=== PATIENT | female | born 1980 | race Caucasian/White ===

== ENCOUNTER 2017-02-09 00:11 | Emergency (ER) | payer MEDICAID ==
[~2017-02-09] VITALS: Ht 167.6 cm; Wt 56.7 kg
[~2017-02-09 00:11] MED LIST: BACTRIM DS 8001 TA1 PO; CLARITIN 10MG T10 MG PO; KEFLEX 500MG.500 MG PO; MEDROL 4MG. DOSE4 MG PO; NOMEDS XX; PRILOSEC20 M1 PO; TRIAMCINOLON EX; ZITHROMAX Z PA250 MG PO
[2017-02-09 00:56] LABS: LYMPH # 1.3 K/mm3 (0.7-4.5); LYMPH % 9.6 % (10-50.0)
[2017-02-09 00:58] LABS: HEMOGLOBIN 13.3 g/dL (12.2-16.2)
--- NOTE | 2017-02-09 01:21 | Emergency Room Report ---
History of Present Illness Time Seen by [id number] Presenting Problem in Triage Pt arrived:Walked Presenting Problem:nausea, vomiting and chills and poor po intake, intermittent chest pain and pressure x 5 days. 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 N Clinical Suspician of Infection? Y Mental Status: 1 - Regular (Normal Baseline) Sepsis Risk:Low Sepsis Risk Have you (or family members/close friends) recently traveled outside the [place]? N If Yes, where/when: Have you had exposure to infectious disease within the past month? N TB? Other? Specify: Source patient, RN notes reviewed, family, RN/MD Exam Limitations no limitations Comment This is a 36-year-old female patient presented emergency room with nausea, vomiting and the RIGHT upper quadrant abdominal pain for the past 5 days , gradually getting worse. Patient has any fever, and chills or diarrhea. Patient also denies any recent travel or exposure to sick contacts. ALLERGIES Coded Allergies: erythromycin base (Mild, 06/14/16) penicillin G (Mild, 06/14/16) Home Medications Active Scripts SULFAMETHOXAZOLE W/TRIMETHOPRI (Bactrim Ds Tab) 1 TABLET PO BID #20 TAB Prov: 06/14/16 Reported Medications No Home Medications (NO HOME MEDICATIONS) 1 EACH XX ONCE History Medical History General CAD? No Angina: No VA: No Hypertension? No Hyperlipidemia? No CHF? No DVT? No PE? No COPD? No Asthma? No Anemia? No GERD? No Gastric ulcers? No GI Bleed? No Hernia? No Thyroid Problems? No Hypothyroidism? No CVA? Yes Seizures? No Diabetes? No UTI? No Stones? No BPH? No GB Disease: No Nephritic Syndrome? No Asplenia? No Hepatitis? No Sickle Cell Disease? No Arthritis? No Migraines? No Cataracts? No Glaucoma? No MRSA? No HIV? No TB? No Anxiety? No Depression? No Cancer? No More? 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 Social History Smoking Hx Smoker: Current Every Day Smoker Tobacco: Yes Type Cigarettes Packs/day < 1 Pack Alcohol Alcohol: Yes Review of Systems All Other Systems Reviewed and Negative Gastrointestinal denies diarrhea, nausea, vomiting Physical Exam Vital Signs Vital Signs Date Time Temp Pulse Resp B/P Pulse O2 O2 Flow FiO2 Ox Delivery Rate 02/09 0507 98.0 96 18 108/70 96 02/09 0459 98.0 96 18 108/70 96 02/09 0330 96 18 103/51 96 02/09 0228 74 20 106/73 96 02/09 0129 68 20 124/76 97 02/09 0014 98.0 89 13 120/82 98 General Appearance normal appearance, WD/WN, mild distress Neck normal inspection, non-tender, supple, full range of motion Respiratory Status Yes: trachea midline, chest symmetrical, non tender chest. No: respiratory distress. Lung Sounds bilateral: normal breath sounds, lungs clear. 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 No Comment Upon evaluation patient appears medically stable, in no acute distress. Advised patient of results obtained as well as need for her to follow up with PCP in order to obtain an outpatient gallbladder ultrasound. Patient advised to eat a bland diet till additional workup obtained. Results/Orders Laboratory Tests 02/09/17 0225: Opiates Screen NEGATIVE, Urine Methadone Screen NEGATIVE, Barbiturates NEGATIVE, Phencyclidine Screen NEGATIVE, Amphetamines Screen NEGATIVE, Benzodiazepines Screen NEGATIVE, Cocaine Screen NEGATIVE, Marijuana (THC) Screen NEGATIVE, Urine Color DK YELLOW, Urine Appearance CLOUDY, Urine pH 7.0, Ur Specific [place] 1.010, Urine Protein NEGATIVE, Urine Ketones NEGATIVE, Urine Blood 1+ H, Urine Nitrate NEGATIVE, Urine Bilirubin 1+ H, Urine Urobilinogen 1.0, Ur Leukocyte Esterase 3+ H, Urine RBC 5-10, Urine WBC TNTC, Urine Glucose NEGATIVE 02/09/17 0030: Sodium 134 L, Potassium 3.2 L, Chloride 96 L, Carbon Dioxide 32, BUN 4 L, Creatinine 1.0, Estimated Creat Clear 69, Estimated GFR (MDRD) 63, Glucose 131 H, Calcium 8.5, Creatine Kinase 33, CK-MB (CK-2) Rel Index 1.5, CK and CKMB Interp < 0.5, Troponin I < 0.02 02/09/17 0030: Amylase 12 L, Lipase 64 L 02/09/17 0030: Total Bilirubin 3.1 H, Direct Bilirubin 1.89 H, Indirect Bilirubin 1.21 H, AST 305 *H, ALT 81 H, Alkaline Phosphatase 328 H, Total Protein 7.8, Albumin 2.6 L, WBC 13.5 H, RBC 3.70 L, Hgb 13.3, Hct 39.7, MCV 107.3 H, RDW 15.3, Plt Count 223, MPV 9.3, Gran % 84.3 H, Gran # 11.4 H, Lymphocytes % 9.6 L, Monocytes % 5.2, Eosinophils % 0.6, Basophils % 0.3, Lymphocytes # 1.3, Monocytes # 0.7, Eosinophils # 0.1, Basophils # 0.0, PUBS MCHC 33.5, MCH 35.9 H , Alcohols 0 Current Medication Orders Sig/Kendra Start time Last Medication Dose Route Stop Time Status Admin Pantoprazole Sodium 0 .STK-MED ONE 02/09 449 DC .ROUTE Pantoprazole Sodium 0 .STK-MED ONE 02/095 DC IV Pantoprazole Sodium 40 MG ONCE ONE 02/09 0430 DC 02/09 PO 02/09 0431 0449 Iopamidol 75 ML ONCE ONE 02/09 0400 DCD 02/09 IV 02/09 0401 0352 Sodium Chloride 10 ML PRN PRN 02/09 0400 DCD 02/09 IV 02/09 0521 0352 Ondansetron HCl 4 MG ONCE ONE 02/09 0130 CAN IV 02/09 0131 Aspirin 324 MG ONCE ONE 02/09 0030 DC 02/09 PO 02/09 0031 0030 Ondansetron HCl 4 MG ONCE ONE 02/09 0030 DC 02/09 IV 02/09 0031 0052 Sodium Chloride 10 ML PRN PRN 02/09 0030 DCD IV 02/10 0027 Sodium Chloride 1,000 ML .Q1H1M 02/09 0030 DC 02/09 IV 02/09 0130 0053 Sodium Chloride 10 ML PRN PRN 02/09 0030 DCD IV 02/10 0030 Aspirin 0 .STK-MED ONE 02/09 0028 DC .ROUTE Ondansetron HCl 0 .STK-MED ONE 02/09 0028 DC .ROUTE Sodium Chloride 1,000 ML .STK-MED ONE 02/09 002 DC IV Orders Procedure Date/time Status DIET-NOTHING BY MOUTH 02/09 B Active URINE 02/[address] ABD & PELVIS W/ CONTRAST 02/[address] ABD/PELVIS REQ 02/09 0235 Active CULTURE, URINE 02/09 0225 Active LIVER PROFILE 02/09 012 Complete DRUG ABUSE SCREEN (10) 02/09 012 Complete ALCOHOL 02/09 0125 Complete URINALYSIS/COMPLETE 02/09 003 Complete LIPASE 02/09 0033 Complete AMYLASE 02/09 0033 Complete ELECTROCARDIOGRAM REQUEST 02/09 0027 Active CHEST(2 VIEWS-NOT PORTABLE) 02/09 0027 Active IV SALINE LOCK 02/09 0027 Active CBC WITH AUTO DIFF 02/09 0027 Complete CARDIAC ENZYMES 02/09 0027 Complete BASIC METABOLIC PROFILE 02/09 0027 Complete 12 LEAD EKG-JAN (INITIAL) 02/09 UNK Active XRAY/CT/US XRAY/CT/US CT abdomen, pelvis CT interpretation by discussed w/radiologist CT Results see virtual radiologist report Departure Departure Time of Disposition 0416 Disposition DC Home or Self Care(routine) Clinical Impression Primary Impression: Chest pain Qualifiers: Chest pain type: unspecified Qualified Code: R07.9 - Chest pain, unspecified Secondary Impressions: Abdominal pain Qualifiers: Abdominal location: unspecified location Qualified Code: R10.9 - Unspecified abdominal pain Alcoholism /alcohol abuse Esophagitis determined by biopsy Right ovarian cyst Condition STABLE Referrals Nory CASTRO,LIZET Ferreira: 2 Days-Call Office if not better RICHARD TERESA MD Patient Instructions DI for Alcohol Abuse, DI for Esophagitis, DI for Ovarian Cyst Additional Instructions Please take the medications prescribed as instructed, follow-up with Animal Shelter Worker 2-3 days regarding your right ovarian cyst. Please follow-up with one of the local general surgeon, Dr. Teresa or Dr. Cueto regarding your esophagitis, and EGD. Please discontinue use of any alcoholic beverages, immediately. Discharge Counseling Counseled pt/family regarding diagnosis, test results, medications/RX, home care, follow up needs Comment Please take the medications prescribed as instructed, follow-up with Animal Shelter Worker 2-3 days regarding your right ovarian cyst. Please follow-up with one of the local general surgeon, Dr. Teresa or Dr. Cueto regarding your esophagitis, and EGD. Please discontinue use of any alcoholic beverages, immediately. Prescriptions Current Visit Scripts Pantoprazole Sodium (Protonix 40MG TAB) 40 MG PO DAILY #30 TAB Ref 2 Ciprofloxacin HCl (Cipro 500MG TAB) 500 MG PO BID #14 TAB ED Critical Care Critical Care No at 1906
[2017-02-09 01:25] LABS: BUN 4 mg/dL (7-18)
[2017-02-09 01:26] LABS: GFR (ESTIMATED) 63 ML/MIN (59-)
[2017-02-09 01:41] LABS: BILIRUBIN, INDIRECT 1.21 mg/dL (0-0.9)
[2017-02-09 03:03] LABS: URINE BLOOD 1+ (NEG)
[2017-02-09 03:05] LABS: URINE BILIRUBIN - DIPSTICK 1+ (NEG)
[2017-02-09 03:10] LABS: AMPHETAMINES/METAMPHETAMINES NEGATIVE ng/mL (<1000)
[2017-02-09] MEDS ORDERED: ETODOLAC200 MG PO (04:20)
[2017-02-09] MEDS ORDERED: PROTONIX 40MG T40 MG PO (04:30)
[2017-02-09] MEDS ORDERED: CIPRO 500MG TA500 MG PO (04:58)
[2017-02-09 05:07] VITALS: BP 108/70
--- NOTE | 2017-02-09 19:40 | RADIOLOGY REPORT PS360 ---
CHEST(2 VIEWS-NOT PORTABLE) Ordering physician: Dylon Larson MD Age: 36 years Female INDICATION: chest symptomsCHEST PAIN PROCEDURE: CHEST(2 VIEWS-NOT PORTABLE) FINDINGS: No prior Lungs well expanded and clear with nothing definitely acute. No pneumothorax. No pleural effusion. Heart normal size. Normal pulmonary vascularity. Hilar and mediastinal structures appear satisfactory. Chest wall unremarkable. T-spine intact. IMPRESSION ----- No active disease Nothing definite acute at chest
--- NOTE | 2017-02-10 20:14 | RADIOLOGY REPORT PS360 ---
CT ABD PELVIS W/ CONTRAST HISTORY: ABD PAIN Patient Age: 36 years: Female Ordering Physician: Dylon Larson MD TECHNIQUE: Helical CT scans abdomen and pelvis following 75 cc Isovue-[id number]. No oral contrast. COMPARISON :None FINDINGS Lung bases appear clear. No active disease Abdomen:. LIVER:.*Hepatomegaly with prominent diffuse fatty changes/hepatic steatosis throughout liver. Focal lower density area seen at posterior dome liver measuring ~4 cm.? Possible Hemangioma most suspect in this younger female. Although could reflect other process given her abnormal liver function test and abnormal liver appearance discussed below... Agree with [facility] report in that we do see vessels passing through this region with no significant displacement-thus this a could reflect focal fatty change.. On close scrutiny there is also subtle vague lower liver density in the region diffusely surrounding this patient's relatively small caliber hepatic segment of IVC. Noting the abnormal LFTs I question there may be liver inflammation swelling about this region which may be slightly compressing IVC??.. Above and below the liver the IVC is normal in caliber...... Also Question relatively small stretched appearance of the hepatic veins leading to the IVC.. They do fill with contrast but appears small but somewhat stretched & attenuated particularly as they approach the IVC. Also note few small azygos nodes versus possibly some increase azygos venous collaterals at the retrocrural region.... This the above multiple findings reflect reflects a curious constellation of the observations which I believe would benefit from hepatic specialist/GI consult. The degree at patient L and LFTs remain elevated.. Last of all note the portal vein is normal caliber measuring 11 mm diameter. However I question that there may be some early increased portal venous collaterals developing medial to the spleen. . No ascites is evident currently.Only some wispy hazy appearance is seen just inferior to the tip the right lobe of liver on coronal views. Recommend follow-up pre-& postcontrast CT abdomen/pelvis, with postcontrast triphasic hemangioma protocol.. Subsequent to these images ultrasound abdomen with attention liver may be useful as well to further evaluate.-& Please specify evaluation of IVC and hepatic veins if ordered to survey for questionable developing Budd-Chiari type picture. Spleen. Upper normal length. Normal measuring Upper normal size overall. .. Gallbladder. No calcified gallstones. Likely sludge. No GB l thickening. Suggestion of Mild diffuse enhancement the wall of gallbladder. Pancreas. Unremarkable. Left adrenal is upper normal prominence. There are some small slight increased number ofppara-aortic lymph nodes both to the left & right of the upper abdominal aorta, & just inferior the martha. These are modest size with multiple enlarging nodes measuring 14 times x 10 mm. PELVIS.: Enlarged right ovary measuring 4.2 x 3.7 cm. Which Contains a 3.5 cm cystic area. If pelvic pain pelvic ultrasound may be of benefit.. Left ovary/adnexa is unremarkable. . Uterus moderate to generous size. Also note generous over 1 cm endometrium. There may be some scant free fluid the pelvis that this point appears to be merely physiologic URINARY BLADDER. Marked diffuse wall thickening compatible with severe cystitis. Slight hazy appearance in the fat surrounding the urinary bladder for this supporting cystitis Kidneys. No urinary tract calculi nor obstruction. Normal enhancement. Ureters unremarkable GI Tract.: Upper normal wall thickness proximal stomach. Moderate fluid throughout small bowel but no significant bowel dilatation or obstruction. Areas of upper normal wall thickness in large and small bowel. Generous wall thickness at the distal transverse colon most likely reflects lack of distention,, as seen on axial image 77 coronal slice 21 but is slightly unique versus other areas of large bowel..- If blood in stool this may warrant further evaluation. Osseous. Unremarkable IMPRESSION 1.. Constellation of Liver Abnormalities.. Suggest GI./-hepatic specialist consult if LFTs remain or progressively elevated. . A.. Hepatomegaly . Prominent diffuse fatty change/ hepatic steatosis . B.. Over 4 cm focal low-density area or lesion posterior dome the liver. Hemangioma versus other process/lesion.. . C.. Unusually slender narrowed appearance of hepatic portion IVC as well as relatively narrow stretched appearance of hepatic veins.. Also subtle vague additional low-density surrounding the IVC region.-Curious features.. (Speculate possible additional hepatic inflammation/& swelling compressing the IVC if marked abnormal LFTs?.... Vs other process.)... 2.. Severe Cystitis.... Prominent urinary bladder wall thickening. 3.. Right Ovarian Cyst, measuring 3.5 cm; within enlarged 4.2 cm Right Ovary,. 4.. Increased number of moderate size periaortic lymph node. Nonspecific. Increased small retrocrural nodes versus retrocrural IVC collaterals 5. Other minor observations also noted in text. 6.. Consider/Suggest GI-hepatic consult particularly if LFTs further elevated. Suggest follow-up LFTs & possibly hepatitis profile Suggest follow-up CT abdomen with triphasic postcontrast imaging. Ultrasound abdomen w/attention hepatic veins may be beneficial in follow-up as well Please fax to ER as well Dr. Sheikh's office.
== END 2017-02-09 05:10 | disposition home or self-care (01) ==
LOC: ER 00:11
PROVIDERS: Emergency Medicine
DX: R07.9 Chest pain, unspecified (principal); R10.11 Right upper quadrant pain; F10.20 Alcohol dependence, uncomplicated; Y90.0 Blood alcohol level of less than 20 mg/100 ml; K20.9 Esophagitis, unspecified
CPT/HCPCS: J2405; Q9967

== ENCOUNTER 2017-04-07 11:29 | Inpatient (IN) | payer MEDICAID ==
[~2017-04-07] VITALS: Ht 167.6 cm; Wt 58.6 kg
[~2017-04-07 11:29] MED LIST changes: +CIPRO 500MG TA500 MG PO; +ETODOLAC200 MG PO; +PROTONIX 40MG T40 MG PO
--- OUTSIDE RECORDS SUMMARY | 2017-04-07 11:32 | External Medical Summary Rpt | CCD ---
Author Author , DELANEY Organization DELANE[employer] Address Unknown Phone [email or web address] Providers Care Oil Heat Technician Name Role Phone SHAE DARBY MD, Unavailable Unavailable SHAE DARBY MD Purpose Continuity of Care Document - 09-10-2012 through 2016 Problems Code Diagnosis DOS Provider Status 477.8 477.8 09-10-2012 [place] ALLERGIC [facility] RHINITIS [facility] NEC 530.81 530.81 09-10-2012 [place] ESOPHAGEAL [facility] REFLUX [facility] F10.10 ALCOHOL ABUSE, UNCOMPLICAT ED F10.20 ALCOHOL DEPENDENCE, UNCOMPLICAT ED K20.9 ESOPHAGITIS , UNSPECIFIED N39.0 URINARY TRACT INFECTION, SITE NOT SPECIFIED N83.201 UNSPECIFIED OVARIAN CYST, RIGHT SIDE R07.9 CHEST PAIN, UNSPECIFIED R10.9 UNSPECIFIED ABDOMINAL PAIN Allergies, Adverse Reactions, Alerts Type Drug Allergy Adverse Reaction to Substance Substance Reaction Severity Penicillin Unknown Unknown SULFA (sulfonamide) Unknown Unknown Erythromycin Unknown Unknown Medications Na ND Rx Da Fi Fi Am Da Di Ph RX Ph St me C No te ll ll ou ys ag ar # ys at rm s nt no ma ic us Or Da si cy ia de te s n re d GI 12 04 0 No 32 -2 CO 22 6- Lo CK 22 20 ng TA 22 13 er IL 2 Ac 60 ti ML ve UD C Vital Signs 09-10-2012 17:18 Name Value Interpretat Reference Comment ion Range Body 98.1 [degF] Temperature BP 96 mm[Hg] Diastolic BP Systolic 151 mm[Hg] Heart 94 /min Rate/Pulse O2% 97 % Respiratory 20 /min Rate 09-10-2012 17:16 Name Value Interpretat Reference Comment ion Range BP 95 mm[Hg] Diastolic BP Systolic 138 mm[Hg] Heart 99 /min Rate/Pulse O2% 100 % Respiratory 16 /min Rate Results Labs Lab Lab Date Result Refere Interp Status Commen Order Detail nces retati t Range on Drugs identified in Urine by Screen method (02-09-2017 02:25) Ampheta NEGATIV <1000 complet mine 017 E ed [Presen 02:25 ce] in Urine by Screen method 11-Hydr NEGATIV <50 complet oxy 017 E ed delta-9 02:25 tetrahy drocann abinol [Presen ce] in Unspeci fied specime n Urinalysis dipstick W Reflex Microscopic panel in Urine (02-09-2017 02:25) Erythro 5-10 0 complet cytes 017 ed [Presen 02:25 ce] in Urine sedimen t by Light microsc opy Urinalysis dipstick W Reflex Microscopic panel in Urine (02-09-2017 02:25) Appeara CLOUDY CLEAR complet nce of 017 ed Urine 02:25 Bilirub 1+ NEG Abnorma complet in 017 l ed [Presen 02:25 ce] in Urine by Test strip Erythro 1+ NEG Abnorma complet cytes 017 l ed [Presen 02:25 ce] in Urine Color DK YELLOW complet of 017 YELLOW ed Urine 02:25 Ketones NEGATIV NEG complet 017 E ed [Presen 02:25 ce] in Urine by Automat ed test strip Mucus 3+ NEG Abnorma complet [Presen 017 l ed ce] in 02:25 Urine sedimen t by Light microsc opy Nitrite NEGATIV NEG complet 017 E ed [Presen 02:25 ce] in Urine by Test strip Urobili 1.0 NEG complet nogen 017 ed [Presen 02:25 ce] in Urine by Test strip Encounters Encounter Start End Date Code Location Performer Type Date Emergency ARTHUR DARBY MD (ER) 3 16:51 3 17:28 [facility]
--- OUTSIDE RECORDS SUMMARY | 2017-04-07 11:32 | External Medical Summary Rpt | CCD ---
Author Author , DELANEY Organization [employer] Address Unknown Phone [email or web address] Care Team Providers Care Jordan Worker Name Role Phone SHAE DARBY MD, Unavailable Unavailable SHAE DARBY MD Purpose Continuity of Care Document - 09-10-2012 through 2016 Problems Code Diagnosis DOS Provider Status 477.8 477.8 09-10-2012 [place] ALLERGIC [facility] RHINITIS [facility] NEC 530.81 530.81 09-10-2012 [place] ESOPHAGEAL [facility] REFLUX [facility] F10.10 ALCOHOL ABUSE, UNCOMPLICAT ED F10.20 ALCOHOL [...] Code Location Performer Type Date Emergency ARTHUR DARYB MD (ER) 3 16:51 3 17:28 [facility]
--- OUTSIDE RECORDS SUMMARY | 2017-04-07 11:33 | External Medical Summary Rpt ---
Author Author DELANEY Mitchell, JAVIROYCE [employer] Organization [employer] Address Unknown Phone Unavailable Results Choriogonadotropin.beta subunit [Units] in 24 hour Urine Observa Value Referen Units Interpr Notes Date tion ce etation Range Choriogon NEG No No No Sep 25 adotropin informati informati informati 2017 2:25 .beta on in on in on in AM subunit source source source [Units] data data data in 24 hour Urine Drugs identified in Urine by Screen method Observa Value Referen Units Interpr Notes Date tion ce etation Range Positive urine drug screen samples are stored for 7 days. Contact the Lab if confirmation of positives is needed. Ampheta NEGATIV <1000 ng/mL No No Sep 25 mine E informa informa 2017 [Presen tion in tion in 2:25 AM ce] in source source Urine data data by Screen method Barbitura <200 ng/mL No No Sep 25 tarun informati informati 2017 2:25 [Mass/vol on in on in AM ume] in source source Urine by data data Screen method Benzodiaz 200 ng/mL ng/mL No No Sep 25 epines informati informati 2017 2:25 [Mass/vol on in on in AM ume] in source source Serum or data data Plasma by Screen method Cocaine <300 ng/g No No Sep 25 [Mass/vol informati informati 2017 2:25 ume] in on in on in AM Unspecifi source source ed data data specimen Methadone <300 ng/mL No No Sep 25 informati informati 2017 2:25 [Mass/vol on in on in AM ume] in source source Unspecifi data data ed specimen Opiates <300 ng/mL No No Sep 25 [Mass/vol informati informati 2017 2:25 ume] in on in on in AM Unspecifi source source ed data data specimen Phencycli <25 ng/mL No No Sep 25 dine informati informati 2017 2:25 [Mass/vol on in on in AM ume] in source source Unspecifi data data ed specimen 11-Hydr NEGATIV <50 ng/mL No No Sep 25 oxy E informa informa 2017 delta-9 tion in tion in 2:25 AM source source tetrahy data data drocann abinol [Presen ce] in Unspeci fied specime n Urinalysis dipstick W Reflex Microscopic panel in Urine Observa Value Referen Units Interpr Notes Date tion ce etation Range Appeara CLOUDY CLEAR No No No Sep 25 nce of informa informa informa 2017 Urine tion in tion in tion in 2:25 AM source source source data data data Bilirub 1+ NEG No Abnorma BILIRUB Sep 25 in informa l IN 2017 [Presen tion in CONFIRM 2:25 AM ce] in source ED WITH Urine data by Test ICTOTES strip T Erythro 1+ NEG No Abnorma No Sep 25 cytes informa l informa 2016 [Presen tion in tion in 2:25 AM ce] in source source Urine data data Color DK YELLOW No No No Sep 25 of YELLOW informa informa informa 2017 Urine tion in tion in tion in 2:25 AM source source source data data data Glucose NEG No No No Sep 25 [Mass/vol informati informati informati 2017 2:25 ume] in on in on in on in AM Urine by source source source Test data data data strip Ketones NEGATIV NEG mg/dL No No Sep 25 E informa informa 2017 [Presen tion in tion in 2:25 AM ce] in source source Urine data data by Automat ed test strip Mucus 3+ NEG No Abnorma No Sep 25 [Presen informa l informa 2016 ce] in tion in tion in 2:25 AM Urine source source sedimen data data t by Light microsc opy Nitrite NEGATIV NEG No No No Sep 25 E informa informa informa 2017 [Presen tion in tion in tion in 2:25 AM ce] in source source source Urine data data data by Test strip pH of 5.0 - 8.5 No Normal No Sep 25 Urine informati informati 2017 2:25 on in on in AM source source data data Protein NEG mg/dL No No Sep 25 [Mass/vol informati informati 2017 2:25 ume] in on in on in AM Urine by source source Automated data data test strip Erythro 5-10 0 rbc/hpf No No Sep 25 cytes informa informa 2016 [Presen tion in tion in 2:25 AM ce] in source source Urine data data sedimen t by Light microsc opy Specific 1.005 - No Normal No Sep 25 gravity 1.030 informati informati 2017 2:25 of Urine on in on in AM source source data data Urobili 1.0 NEG E.U./dL No No Sep 25 nogen informa informa 2017 [Presen tion in tion in 2:25 AM ce] in source source Urine data data by Test strip Leukocyte O wbc/hpf No No Sep 25 s informati informati 2017 2:25 [#/volume on in on in AM ] in source source Urine data data Urinalysis dipstick W Reflex Microscopic panel in Urine Observa Value Referen Units Interpr Notes Date tion ce etation Range Appeara CLOUDY CLEAR No No No Sep 25 nce of informa informa informa 2017 Urine tion in tion in tion in 2:25 AM source source source data data data Bilirub 1+ NEG No Abnorma BILIRUB Sep 25 in informa l IN 2016 [Presen tion in CONFIRM 2:25 AM ce] in source ED WITH Urine data by Test ICTOTES strip T Erythro 1+ NEG No Abnorma No Sep 25 cytes informa l informa 2016 [Presen tion in tion in 2:25 AM ce] in source source Urine data data Color DK YELLOW No No No Sep 25 of YELLOW informa informa informa 2017 Urine tion in tion in tion in 2:25 AM source source source data data data Glucose NEG No No No Sep 25 [Mass/vol informati informati informati 2017 2:25 ume] in on in on in on in AM Urine by source source source Test data data data strip Ketones NEGATIV NEG mg/dL No No Sep 25 E informa informa 2016 [Presen tion in tion in 2:25 AM ce] in source source Urine data data by Automat ed test strip Mucus 3+ NEG No Abnorma No Sep 25 [Presen informa l informa 2016 ce] in tion in tion in 2:25 AM Urine source source sedimen data data t by Light microsc opy Nitrite NEGATIV NEG No No No Sep 25 E informa informa informa 2017 [Presen tion in tion in tion in 2:25 AM ce] in source source source Urine data data data by Test strip pH of 5.0 - 8.5 No Normal No Sep 25 Urine informati informati 2017 2:25 on in on in AM source source data data Protein NEG mg/dL No No Sep 25 [Mass/vol informati informati 2017 2:25 ume] in on in on in AM Urine by source source Automated data data test strip Specific 1.005 - No Normal No Sep 25 gravity 1.030 informati informati 2017 2:25 of Urine on in on in AM source source data data Urobili 1.0 NEG E.U./dL No No Sep 25 nogen informa informa 2016 [Presen tion in tion in 2:25 AM ce] in source source Urine data data by Test strip Ethanol [Mass/volume] in Serum or Plasma Observa Value Referen Units Interpr Notes Date tion ce etation Range Ethanol 0 - 99 mg/dL Normal ANY Sep 25 [Mass/vol ALCOHOL > 2017 ume] in OR = 80 12:30 AM Serum or MG/DL IS Plasma CONSIDERE D LEGALLYIN TOXICATED UNDER [facility] LAW. Hepatic function 2000 panel in Serum or Plasma Observa Value Referen Units Interpr Notes Date tion ce etation Range Albumin 3.4 - 5.0 gm/dL Low No Sep 25 [Mass/vol informati 2017 ume] in on in 12:30 AM Serum or source Plasma data Alkaline 46 - 116 U/L High No Sep 25 phosphata informati 2017 se on in 12:30 AM [Enzymati source c data activity/ volume] in Serum or Plasma Bilirubin 0.0 - 0.2 mg/dL High No Sep 25 .direct informati 2017 [Mass/vol on in 12:30 AM ume] in source Serum or data Plasma Bilirubin 0 - 0.9 mg/dL High No Sep 25 .indirect informati 2017 on in 12:30 AM [Mass/vol source ume] in data Serum or Plasma Bilirubin 0.2 - 1.0 mg/dL High No Sep 25 .total informati 2017 [Mass/vol on in 12:30 AM ume] in source Serum or data Plasma Aspartate 15 - 37 U/L High No Sep 25 alert informati 2017 aminotran on in 12:30 AM sferase source [Enzymati data c activity/ volume] in Serum or Plasma Alanine 12 - 78 U/L High No Sep 25 aminotran inform 2017 sferase on in 12:30 AM [Enzymati source c data activity/ volume] in Serum or Plasma Protein 6.4 - 8.2 gm/dL Normal No Sep 25 [Mass/vol informati 2017 ume] in on in 12:30 AM Serum or source Plasma data Amylase [Enzymatic activity/volume] in Serum or Plasma Observa Value Referen Units Interpr Notes Date tion ce etation Range Amylase 25 - 115 U/L Low No Sep 25 [Enzymati informati 2017 c on in 12:30 AM activity/ source volume] data in Serum or Plasma Lipase [Enzymatic activity/volume] in Serum or Plasma Observa Value Referen Units Interpr Notes Date tion ce etation Range Lipase 73 - 393 U/L Low No Sep 25 [Enzymati inform 2017 c on in 12:30 AM activity/ source volume] data in Serum or Plasma CBC W Auto Differential panel in Blood Observa Value Referen Units Interpr Notes Date tion ce etation Range Basophils 0 - 0.2 K/MM3 Normal No Sep 25 inform2016 [#/volume on in 12:30 AM ] in source Blood by data Automated count Basophils 0.1 - 2.0 % Normal No Sep 25 /100 inform2016 leukocyte on in 12:30 AM s in source Blood by data Automated count Eosinophi 0.0 - 0.4 K/mm3 Normal No Sep 25 ls 2016 [#/volume on in 12:30 AM ] in source Blood by data Automated count Eosinophi 0.1 - % Normal No Sep 25 ls/100 12.0 inform2016 leukocyte on in 12:30 AM s in source Blood by data Automated count Granulocy 1.8 - 7.8 K/mm3 High No Sep 25 tarun inform2016 [#/volume on in 12:30 AM ] in source Blood by data Automated count Granulocy 37.0 - % High No Sep 25 tarun/100 80.0 inform2016 leukocyte on in 12:30 AM s in source Blood by data Automated count Hematocri 37.0 - % Normal No Sep 25 t [Volume 47.0 inform2016 on in 12:30 AM Fraction] source of Blood data Hemoglobi 12.2 - g/dL No No Sep 25 n 16.2 informati informati 2016 [Mass/vol on in on in 12:30 AM ume] in source source Blood data data Lymphocyt 0.7 - 4.5 K/mm3 Normal No Sep 25 es inform2016 [#/volume on in 12:30 AM ] in source Unspecifi data ed specimen by Automated count Lymphocyt 10 - 50.0 % Low No Sep 25 es inform2016 [#/volume on in 12:30 AM ] in source Unspecifi data ed specimen by Automated count Erythrocy 27 - 31.2 pg High No Sep 25 te mean inform2016 corpuscul on in 12:30 AM ar source hemoglobi data n [Entitic mass] Erythrocy 31.8 - g/dl Normal No Sep 25 te mean 35.4 inform2016 corpuscul on in 12:30 AM ar source hemoglobi data n concentra tion [Mass/vol ume] by Automated count Erythrocy 82.2 - fl High No Sep 25 te mean 97.8 informati 2016 corpuscul on in 12:30 AM ar volume source [Entitic data volume] by Automated count Monocytes 0.1 - 1.0 K/mm3 Normal No Sep 25 informati 2016 [#/volume on in 12:30 AM ] in source Blood by data Automated count Monocytes 1.7 - 9.3 % Normal No Sep 25 /100 informati 2017 leukocyte on in 12:30 AM s in source Blood by data Automated count Platelet 7.4 - fl Normal No Sep 25 mean 10.4 informati 2016 volume on in 12:30 AM [Entitic source volume] data in Blood by Automated count Platelets 142 - 424 K/mm3 No No Sep 25 informati informati 2016 [#/volume on in on in 12:30 AM ] in source source Blood data data Erythrocy 4.2 - 5.4 M/mm3 Low No Sep 25 tarun informati 2016 [#/volume on in 12:30 AM ] in source Amniotic data fluid Erythrocy 11.5 - % Normal No Sep 25 te 17.5 informati 2016 distribut on in 12:30 AM ion width source [Entitic data volume] by Automated count Leukocyte 4.8 - K/MM3 High No Sep 25 s 10.8 informati 2016 [#/volume on in 12:30 AM ] in source Blood data
--- OUTSIDE RECORDS SUMMARY | 2017-04-07 11:33 | External Medical Summary Rpt | CCD ---
Author Author [employer] Organization [employer] Address Unknown Phone Unavailable Purpose Continuity of Care Document - through 2016
--- OUTSIDE RECORDS SUMMARY | 2017-04-07 11:33 | External Medical Summary Rpt | CCD ---
Demographics Preferred Language Kyrgyz Marital Status Unknown Synagogue Affiliation Unknown Race Unknown Ethnic Group Unknown Author Author , [employer] Organization [employer] Address Unknown Phone [email or web address] Immunization Name Date Rout CVX Reac Dose Comm Prov Is Faci e tion ent ider Refu lity Give sed n Td 08-2 9 999 Hist H191 No H191 (lea 7-19 ori lt), 96 al Info adso rmat rbed ion - Sour ce Unsp ecif ied
--- OUTSIDE RECORDS SUMMARY | 2017-04-07 11:33 | External Medical Summary Rpt | CCD ---
Demographics Preferred Language Beninese Marital Status Unknown Jehov[employer] Witness Affiliation Unknown Race Unknown Ethnic Group Unknown Author Author , [facility] Organization [facility] Address Unknown Phone [email or web address] Immunization Name Date Rout CVX Reac Dose Comm Prov Is Faci e tion ent ider Refu lity Give sed n Td 08-2 9 999 Hist H191 No H191 (lea 7-19 ori lt), 96 al Info adso rmat rbed ion - Sour ce Unsp ecif ied
--- OUTSIDE RECORDS SUMMARY | 2017-04-07 11:33 | External Medical Summary Rpt ---
[...] IS Plasma CONSIDERE D LEGALLYIN TOXICATED UNDER [facility] LAW. Hepatic function 2000 panel in [...]
[2017-04-07 12:58] VITALS: BP 126/78
[2017-04-07 13:24] LABS: BILIRUBIN, INDIRECT 2.91 mg/dL (0-0.9); BUN 3 mg/dL (7-18)
[2017-04-07 13:25] LABS: HEMOGLOBIN 12.2 g/dL (12.2-16.2); LYMPH % 10.1 % (10-50.0)
[2017-04-07 13:35] VITALS: BP 137/74
[2017-04-07 13:37] LABS: GFR (ESTIMATED) 113 ML/MIN (59-)
[2017-04-07 14:02] LABS: NEUTROPHILS 83 % (42-76)
--- NOTE | 2017-04-07 15:10 | CONSULT NOTE ---
Pharmacokinetic Consult Date of consult: 04/07/17 Time of consult: 1505 Referring provider: DR. TOLENTINO Reason for consult: VANCOMYCIN DOSING Allergies: Coded Allergies: erythromycin base (Mild, 06/14/16) penicillin G (Mild, 06/14/16) Home Medications: Reported Medications No Known Home Medications Height (feet): 5 Height (inches): 6.00 Medical History: CAD? No Angina: No IN: No Hypertension? No Hyperlipidemia? No CHF? No DVT? No PE? No COPD? No Asthma? No Anemia? No GERD? No Gastric ulcers? No GI Bleed? No Hernia? No Thyroid Problems? No Hypothyroidism? No CVA? Yes Seizures? No Diabetes? No UTI? No Stones? No BPH? No GB Disease: No Nephritic Syndrome? No Asplenia? No Hepatitis? No Sickle Cell Disease? No Arthritis? No Migraines? No Cataracts? No Glaucoma? No MRSA? No HIV? No TB? No Anxiety? No Depression? No Cancer? No More? No Labs: Laboratory Tests 04/07/17 1337: Ammonia < 10 L 04/07/17 1256: Hemoglobin A1c 3.9 04/07/17 1256: Sodium 135 L, Potassium 2.7 *L, Chloride 96 L, Carbon Dioxide 29, BUN 3 L, Creatinine 0.6, Estimated GFR (MDRD) 113, Glucose 98, Calcium 8.6, Total Bilirubin 17.0 *H, Direct Bilirubin 14.09 H, Indirect Bilirubin 2.91 H, AST 361 *H, ALT 126 H, Alkaline Phosphatase 166 H, Total Protein 7.8, Albumin 2.2 L, PT 16.3 H, INR 1.50 H, APTT 31.5, WBC 20.1 *H, RBC 3.41 L, Hgb 12.2, Hct 37.6, MCV 110.2 H, RDW 17.8 H, Plt Count 367, MPV 10.0, Gran % 85.6 H, Gran # 17.2 H, Total Counted 100, Lymphocytes % 10.1, Monocytes % 3.8, Eosinophils % 0.1, Basophils % 0.4, Neutrophils 83 H, Lymphocytes (Manual) 8 L, Lymphocytes # 2.0, Monocytes (Manual) 9, Monocytes # 0.8, Eosinophils # 0.0, Basophils # 0.1 , Platelet Estimate SLIGHT INCREASE, PUBS MCHC 32.5, MCH 35.8 H, Alcohols 0 Microbiology 04/07 UNK BLOOD: Anaerobic Blood Culture - ORD 04/07 UNK BLOOD: Aerobic Blood Culture - ORD 04/07 UNK BLOOD: Anaerobic Blood Culture - ORD 04/07 UNK BLOOD: Aerobic Blood Culture - ORD Plan: BASED ON PATIENT'S FACTORS, RECOMMEND STARTING WITH VANCOMYCIN 1000 MG Q8 AT THIS TIME. PHARMACY WILL FOLLOW DAILY AND ADJUST APPROPRIATE. MEMO JOHNSON, PHARMD at 1134
[2017-04-07 16:00] VITALS: BP 114/68
--- NOTE | 2017-04-07 16:03 | HISTORY AND PHYSICAL REPORT ---
Demographics: Admit date: 04/07/17 Chief complaint: nausea, abdominal pain PRIMARY DIAGNOSIS: JAUNDICE, HEPATOMEGALY Allergies: Coded Allergies: erythromycin base (Mild, 06/14/16) penicillin G (Mild, 06/14/16) History of present illness: History of present illness: 36-year-old white female with no significant medical history presents to internal medicine clinic for evaluation of her "eyes and liver." Patient reports one-month history of increasing abdominal distention, pain and jaundice. She was seen in the emergency department 01/2017 for RUQ pain, chest pain, nausea and vomiting. CT scan at that time showed a constellation of liver abnormalities including hepatomegaly, hepatic steatosis and a 4 cm focal low- density lesion in the posterior dome of the liver. Liver enzymes were elevated with AST 305 and ALT 81. Alk phos 328 with Total Bili 3.1. ED note states patient was instructed to FU with Dr. Campbell; however patient states she was unaware of the FU. Today, patient reports abdominal pain, nausea and distention has significantly increased over the past month. She has occasional vomiting and diarrhea. She reports approximate 10 pound weight loss in the last 1-2 months. She denies any current alcohol or drug use. Reports previous history of 6-7 beers 3-4 days per week, last drink approx 3 months ago. Denies any history of IV drug use. Her father who is now was hepatitis C positive. In the office, patient was noted to be severely jaundiced with significant hepatomegaly and splenomegaly. She was admitted to acute care for further evaluation. Past medical history: Family HX Diabetes No CAD No Hypertension Yes Hyperlipidemia Yes Cancer Yes TB No Immunization HX DT/Tetanus 1-4 Years Ago Flu Refused Pneumonia Refuses TB Test in last year No General CAD? No Angina: No GA: No Hypertension? No Hyperlipidemia? No CHF? No DVT? No PE? No COPD? No Asthma? No Anemia? No GERD? No Gastric ulcers? No GI Bleed? No Hernia? No Thyroid Problems? No Hypothyroidism? No CVA? Yes Seizures? No Diabetes? No UTI? No Stones? No BPH? No GB Disease: No Nephritic Syndrome? No Asplenia? No Hepatitis? No Sickle Cell Disease? No Arthritis? No Migraines? No Cataracts? No Glaucoma? No MRSA? No HIV? No TB? No Anxiety? No Depression? No Cancer? No More? No Past Surgical HX Previous Surgery?Y BLADDER SURGERY Current home meds: Reported Medications No Known Home Medications Social Hx: Smoking HX Tobacco Yes Type Cigarettes Packs/day < 1 PACK Are you/the child exposed to second-hand smoke: Yes Alcohol Alcohol: Yes How much do you drink 6-10 Drinks Per Day For how long Longer Than 5 Years When was your last drink Greater Than 72 Hours Ago Comment PT STATED SHE HAS NOT HAD A DRINK IN 3 MONTHS Hx of Drug Use Drug Use? No Patient's support system is fair Review of systems: Constitutional malaise. No: chills, diaphoresis, fever, weakness. Eyes other (jaundice). Ears, Nose, Mouth, Throat No no symptoms reported Respiratory No: no symptoms reported. Cardiovascular No no symptoms reported Gastrointestinal/Abdominal see HPI Genitourinary No: no symptoms reported. Musculoskeletal No: no symptoms reported. Skin change in color. Neurological No: no symptoms reported. Psychiatric No: no symptoms reported, anxious, depressed, other, withdrawn. Exam: Lab data for last 24 hours: Laboratory Tests 04/07/17 1337: Ammonia < 10 L 04/07/17 1256: Hemoglobin A1c 3.9 04/07/17 1256: Sodium 135 L, Potassium 2.7 *L, Chloride 96 L, Carbon Dioxide 29, BUN 3 L, Creatinine 0.6, Estimated GFR (MDRD) 113, Glucose 98, Calcium 8.6, Total Bilirubin 17.0 *H, Direct Bilirubin 14.09 H, Indirect Bilirubin 2.91 H, AST 361 *H, ALT 126 H, Alkaline Phosphatase 166 H, Total Protein 7.8, Albumin 2.2 L, PT 16.3 H, INR 1.50 H, APTT 31.5, WBC 20.1 *H, RBC 3.41 L, Hgb 12.2, Hct 37.6, MCV 110.2 H, RDW 17.8 H, Plt Count 367, MPV 10.0, Gran % 85.6 H, Gran # 17.2 H, Total Counted 100, Lymphocytes % 10.1, Monocytes % 3.8, Eosinophils % 0.1, Basophils % 0.4, Neutrophils 83 H, Lymphocytes (Manual) 8 L, Lymphocytes # 2.0, Monocytes (Manual) 9, Monocytes # 0.8, Eosinophils # 0.0, Basophils # 0.1 , Platelet Estimate SLIGHT INCREASE, PUBS MCHC 32.5, MCH 35.8 H, Alcohols 0 Microbiology 04/07 1507 BLOOD: Anaerobic Blood Culture - RECD 04/07 1507 BLOOD: Aerobic Blood Culture - RECD 04/07 1505 BLOOD: Anaerobic Blood Culture - RECD 04/07 1505 BLOOD: Aerobic Blood Culture - RECD Admission vital signs: 1ST Vital Signs Result Date Time B/P 126/78 04/07 1258 Temp 98.6 04/07 1258 Pulse 99 04/07 1258 Resp 18 04/07 1258 Pulse Ox 97 04/07 1313 O2 Delivery ROOM AIR 04/07 1313 Exam General appearance: alert, awake Eyes: scleral icterus ENT: mucous membranes moist Neck: normal inspection, non-tender, no JVD Cardiovascular: rate and rhythm regular, tachycardiac Respiratory: clear to auscultation, chest non-tender, good air movement, normal breath sounds ABD: distended, hepatomegaly, spleenomegaly, firm, tenderness RUQ/LUQ, periumbilical bruising Genitourinary: no dysuria, no hematuria Extremities: moves all Musculoskeletal: equal muscle strength Skin: jaundice Neuro: no deficit, normal mood/affect, oriented, speech clear Plan: Problem List 1. Acute liver disease Assessment/Plan Repeat CT abdomen/pelvis. Obtain Liver ultrasound. Liver enzymes and bilirubin have significantly increased. She has history of ETOH use and family history of Hep C that could be causing her hepatic failure. Start lactulose. Leukocytosis noted, as well. Cerda cultures obtained. Start vancomycin and rocephin. INR 1.5. Will recheck in the am. Spoke with Dr. Wayne Beltran [facility] at [facility] who accepted patient; however there is a waiting list and it could be several days before a bed becomes available. Consult surgery for evaluation. 2. History of ETOH abuse 3. Exposure to hepatitis C Plan: See above at 9320
--- NOTE | 2017-04-07 16:05 | RADIOLOGY REPORT PS360 ---
US LIVER (ABD LTD) CLINICAL INDICATION: HEPATOMEGALY, JAUNDICE ORDERING PHYSICIAN: Ayush Doherty MD PATIENT AGE: 36 years COMPARISON: None FINDINGS: The liver is enlarged measuring up to 28 cm transverse with prominent left lobe of the liver. There is homogeneous hepatic echogenicity. The gallbladder is also distended at 10 x 5 cm. No intrahepatic biliary dilatation or obvious hepatic mass. Common bile duct is normal at 4 mm. No gallstones apparent. No gallbladder wall thickening or pericholecystic fluid. There is appropriate directional blood flow within the portal vein which does not appear enlarged. Pancreas is poorly demonstrated. The right kidney has an unremarkable appearance. IMPRESSION: 1. Hepatomegaly. 2. Mildly distended gallbladder
[2017-04-07 16:53] LABS: URINE BILIRUBIN - DIPSTICK 3+ (NEG)
[2017-04-07 16:54] LABS: URINE BILIRUBIN ICTOTEST POSITIVE (NEG); URINE BLOOD NEGATIVE (NEG)
[2017-04-07 16:57] LABS: AMPHETAMINES/METAMPHETAMINES NEGATIVE ng/mL (<1000)
[2017-04-07 19:15] VITALS: BP 114/68
--- NOTE | 2017-04-07 19:35 | CONSULT NOTE ---
Standard Demographics Patient Demo Date of Consultation: 04/07/17 Referring Provider: Ayush Doherty MD Reason for Consultation: possible paracentesis PRIMARY DIAGNOSIS: JAUNDICE, HEPATOMEGALY Allergies: Coded Allergies: erythromycin base (Mild, 06/14/16) penicillin G (Mild, 06/14/16) History of Present Illness Chief Complaint: Jaundice History of Present Illness: This is a 36-year-old female who presented to her primary care provider with jaundice. She had a one-month history of increasing abdominal pain/distention, as well as jaundice. In January of this year she was evaluated in the emergency department for RIGHT upper quadrant pain, chest pain, nausea, vomiting. At this time she had a CT scan which revealed hepatomegaly, as well as other hepatic anomalies. She does describe occasional diarrhea, nausea, and vomiting. She has lost approximately 10 pounds over the past "month or 2". She denies current use of alcohol. She also denies use of IV drugs. She was admitted for medical management and surgical service was consulted for possible paracentesis if significant ascites was revealed upon follow-up CT scan. Past Medical History Denies: CAD. Surgical History Previous Surgery?Y BLADDER SURGERY Allergies Coded Allergies: erythromycin base (Mild, 06/14/16) penicillin G (Mild, 06/14/16) Medications: Reported Medications No Known Home Medications Family history Postive for: HTN (HepC (father)). Smoking Hx Tobacco: Yes Smoker: Current Every Day Smoker Type: Cigarettes Packs/day: < 1 Pack Are you/the child exposed to second-hand smoke: Yes Alcohol Alcohol: Yes How much do you drink 6-10 Drinks Per Day For how long Longer Than 5 Years When was your last drink Greater Than 72 Hours Ago Comment PT STATED SHE HAS NOT HAD A DRINK IN 3 MONTHS Hx of Drug Use Drug Use? No Review of Systems Constitutional Positive for: recent weight loss. Skin No: bruising. Immune/allergy No: anaphalaxis. Eyes No: discharge. ENT No: nose bleed. Respiratory No: pneumonia. Cardiovascular No: palpitations. GI Positive for: nausea, vomitting. No: hematemeis, hematochezia, melena. (female) No: hematuria. Heme No: petechia. Neurological No: change in LOC. Psychiatric No: anxious. Physical Exam VS/I&O Vital Signs Date Time Temp Pulse Resp B/P Pulse O2 O2 Flow FiO2 Ox Delivery Rate 04/07 1640 20 04/07 1600 98.9 104 18 114/68 99 ROOM AIR 04/07 1335 99.0 118 20 137/74 97 ROOM AIR 04/07 1313 99 04/07 1313 97 ROOM AIR 04/07 1258 98.6 99 18 126/78 Exam General appearance no acute distress Respiratory no distress Cardiovascular regular rate and rhythm Abdomen flat (no fluid wave), hepatosplenomegaly Findings/Data repeat CT show no significant ascites Plan Plan: Impression: Jaundice Hepatosplenomegaly Plan: Medical management as per primary service Gastroenterology consultation No significant ascites to warrant paracentesis at 1941
[2017-04-07 20:33] VITALS: BP 129/91
[2017-04-08] VITALS (7 sets, daily range): BP systolic 109–125; BP diastolic 65–77
--- NOTE | 2017-04-08 07:14 | RADIOLOGY REPORT PS360 ---
CT ABD PELVIS W/ CONTRAST CLINICAL INDICATION: HEPATOMEGALY,JAUNDICE ORDERING PHYSICIAN: Ayush Doherty MD PATIENT AGE: 36 years COMPARISON: 02/09/2017 TECHNIQUE: Axial images obtained with sagittal and coronal reformats. 3 phase imaging performed following contrast administration. PROCEDURE: Oral Contrast: None IV Contrast: 75 mL of Isovue-370. FINDINGS: No acute finding in the lower chest. There is diffuse hepatic steatosis with hepatomegaly. The liver measures 26 cm transverse and 25 cm cephalad to caudad. No focal liver lesion is evident. The gallbladder is distended measuring 4.7 cm transverse dimension and nearly 10 cm cephalad to caudad. Borderline splenomegaly at 13 cm. The adrenal glands, pancreas, and kidneys are unremarkable. No intestinal obstruction or free air. Unremarkable appendix. No pelvic mass or focal inflammatory change evident. No ascites. There is an oval area of slight decreased density within the central aspect of the right rectus abdominis muscle seen best on the axial images this measures approximately 15 mm. This is of questionable etiology and clinical significance. This is not readily apparent on 02/09/2017 however. IMPRESSION: 1. Hepatomegaly with hepatic steatosis. 2. Distended gallbladder. 3. Unusual oval slightly isodense lesion of the right rectus abdominis muscle just superior to the level of the umbilicus. Etiology is indeterminate. Further evaluation may be obtained with ultrasound if clinically warranted.
--- NOTE | 2017-04-08 07:17 | SURGEON PROGRESS NOTE ---
Subjective data Subjective data: Resting Objective data Vitals,I&O,and Labs: Vital signs, intake and output,and available lab data for the last 24 hours is as noted below. Vital Signs Date Time Temp Pulse Resp B/P Pulse O2 O2 Flow FiO2 Ox Delivery Rate 04/08 0400 98.1 101 20 113/72 94 ROOM AIR 04/08 0000 98.4 96 20 116/66 96 ROOM AIR 04/07 2033 20 04/07 2033 98.7 107 20 129/91 98 ROOM AIR 04/07 1915 98.9 104 20 114/68 99 04/07 1640 20 04/07 1600 98.9 104 18 114/68 99 ROOM AIR 04/07 1335 99.0 118 20 137/74 97 ROOM AIR 04/07 1313 99 04/07 1313 97 ROOM AIR 04/07 1258 98.6 99 18 126/78 04/07 1500 04/07 2300 04/08 0700 Intake Total Output Total Balance Patient 58.599 kg Weight Laboratory Tests Test Result Date Time Chemistry Sodium (mmoL/L) 135 04/07 1256 Potassium (mmoL/L) 2.7 04/07 1256 Chloride (mmoL/L) 96 04/07 1256 Carbon Dioxide (mmoL/L) 29 04/07 1256 BUN (mg/dL) 3 04/07 1256 Creatinine (mg/dL) 0.6 04/07 1256 Estimated GFR (MDRD) (ML/MIN) 113 04/07 1256 Glucose (mg/dL) 98 04/07 1256 Hemoglobin A1c (%) 3.9 04/07 1256 Calcium (mg/dL) 8.6 04/07 1256 Total Bilirubin (mg/dL) 17.0 04/07 1256 Direct Bilirubin (mg/dL) 14.09 04/07 1256 Indirect Bilirubin (mg/dL) 2.91 04/07 1256 AST (U/L) 361 04/07 1256 ALT (U/L) 126 04/07 1256 Alkaline Phosphatase (U/L) 166 04/07 1256 Ammonia (umoL/L) < 10 04/07 1337 Total Protein (gm/dL) 7.8 04/07 1256 Albumin (gm/dL) 2.2 04/07 1256 Coagulation PT (SECONDS) 16.3 04/07 1256 INR 1.50 04/07 125 APTT (SECONDS) 31.5 04/07 1256 Hematology WBC (K/MM3) 20.1 04/07 125 RBC (M/mm3) 3.41 04/07 1256 Hgb (g/dL) 12.2 04/07 1256 Hct (%) 37.6 04/07 1256 MCV (fl) 110.2 04/07 1256 RDW (%) 17.8 04/07 1256 Plt Count (K/mm3) 367 04/07 1256 MPV (fl) 10.0 04/07 1256 Gran % (%) 85.6 04/07 125 Gran # (K/mm3) 17.2 04/07 1256 Total Counted (#CELLS) 100 04/07 1256 Lymphocytes % (%) 10.1 04/07 125 Monocytes % (%) 3.8 04/07 125 Eosinophils % (%) 0.1 04/07 1256 Basophils % (%) 0.4 04/07 125 Neutrophils (%) 83 04/07 125 Lymphocytes (Manual) (%) 8 04/07 1256 Lymphocytes # (K/mm3) 2.0 04/07 125 Monocytes (Manual) (%) 9 04/07 1256 Monocytes # (K/mm3) 0.8 04/07 1256 Eosinophils # (K/mm3) 0.0 04/07 125 Basophils # (K/MM3) 0.1 04/07 125 Platelet Estimate SLIGHT INCREASE 04/07 1256 PUBS MCHC (g/dl) 32.5 04/07 1256 Immunology MCH (pg) 35.8 04/07 125 Toxicology Opiates Screen (ng/mL) NEGATIVE 04/07 1600 Urine Methadone Screen (ng/mL) NEGATIVE 04/07 1600 Barbiturates (ng/mL) NEGATIVE 04/07 1600 Phencyclidine Screen (ng/mL) NEGATIVE 04/07 1600 Amphetamines Screen (ng/mL) NEGATIVE 04/07 1600 Benzodiazepines Screen (ng/mL) NEGATIVE 04/07 1600 Cocaine Screen (ng/g) NEGATIVE 04/07 1600 Marijuana (THC) Screen (ng/mL) NEGATIVE 04/07 1600 Alcohols (mg/dL) 0 04/07 125 Urines Urine Color CAROLE 04/07 1600 Urine Appearance CLEAR 04/07 1600 Urine pH 6.0 04/07 [address] 1.020 04/07 1600 Urine Protein (mg/dL) TRACE 04/07 1600 Urine Ketones (mg/dL) MODERATE 04/07 1600 Urine Blood NEGATIVE 04/07 1600 Urine Nitrate NEGATIVE 04/07 1600 Urine Bilirubin 3+ 04/07 1600 Urine Ictotest POSITIVE 04/07 1600 Urine Urobilinogen (E.U./dL) 1 04/07 1600 Ur Leukocyte Esterase NEGATIVE 04/07 1600 Urine RBC (rbc/hpf) NONE 04/07 1600 Urine WBC (wbc/hpf) 3-5 04/07 1600 Ur Squamous Epith Cells (#/hpf) 10-04/07 1600 Urine Bacteria 2+ 04/07 1600 Urine Glucose NEGATIVE 04/07 1600 Assessment findings Assessment Exam General appearance: no acute distress Cardiovascular: regular rate & rhythm Respiratory: no respiratory distress Patient plan Diagnoses: Jaundice Hepatosplenomegaly Plan: continue medical management at 0716
--- NOTE | 2017-04-08 07:25 | PHARMACY CLINIC NOTE ---
Patient Demographics Patient Demographics Admission date: 04/07/17 Date: 04/08/17 Time: 0724 Allergies Coded Allergies: erythromycin base (Mild, 06/14/16) penicillin G (Mild, 06/14/16) HEIGHT- FT: 5 IN: 6.00 K.599 VTE General Information Labs: Laboratory Tests 04/07 1256 Coagulation PT (9.4 - 11.8 SECONDS) 16.3 H INR (0.9 - 1.1) 1.50 H APTT (23.6 - 34.0 SECONDS) 31.5 Hematology Hgb (12.2 - 16.2 g/dL) 12.2 Hct (37.0 - 47.0 %) 37.6 Plt Count (142 - 424 K/mm3) 367 Disclaimer The following section includes nursing documentation that has been pulled in for pharmacy review. Patient's VTE score: 0 Patient's VTE Risk: VERY LOW RISK Clinical trial participant? No VTE prophylaxis [id number] VTE prophylaxis ordered? Yes Type of prophylaxis/treatment: DANITA at 0724
[2017-04-08 07:32] LABS: BILIRUBIN, INDIRECT 2.3 mg/dL (0-0.9)
[2017-04-08 07:35] LABS: HEMOGLOBIN 10.6 g/dL (12.2-16.2)
[2017-04-08] MEDS ORDERED: PANTOPRAZOLE SO40 M1 PO (07:57)
--- NOTE | 2017-04-08 08:24 | ACUTE CARE PROGRESS NOTE (QUA) ---
Progress Notes Subjective Date 04/08/17 Time 0822 Patient/family reports: feeling better, nausea Nursing reports: alert, no complaints Objective Findings Last VS-Temp:98.1 B/P:113/72 Pulse:101 Resp:20 SaO2:94 ROOM AIR Last weight lbs:129 oz:3 K.599 Method:Bed Scales Exam General appearance: alert (jaundice improved) Eyes: scleral icterus Neck: normal inspection Respiratory: aerating well ABD: hepatomegaly Reviewed: allergies, medications, vital signs Assessment/Plan Problem List 1. Acute liver disease 2. History of ETOH abuse 3. Exposure to hepatitis C Patient condition Improving, labs have slightly improved. We will replace potassium, increase lactulose dose, cautiously advance diet. No need for paracentesis since ascitic fluid not visible. Continue proton pump inhibitor. Cautious beta bianka given heart rate issues and high-risk of varices. This inpt stay is expected to cross 2 MNs from start of care Yes at 0823
[2017-04-08 09:37] LABS: HBsAg Screen Negative (Negative); Hep A Ab, IgM Negative (Negative); Hep B Core Ab, IgM Negative (Negative); Hep C Virus Ab 0.2 (0.0-0.9)
[2017-04-08 12:36] LABS: Ceruloplasmin 35.6 mg/dL (19.0-39.0)
[2017-04-08 14:40] LABS: Mitochondrial (M2) Antibody <20.0 Units (0.0-20.0)
--- NOTE | 2017-04-08 14:53 | CONSULT NOTE ---
Pharmacokinetic Consult Date of consult: 04/08/17 Time of consult: 1447 Referring provider: DR. TOLENTINO Reason for consult: VANCOMYCIN TROUGH LEVEL Allergies: Coded Allergies: erythromycin base (Mild, 06/14/16) penicillin G (Mild, 06/14/16) Home Medications: Reported Medications Pantoprazole Sodium 40 MG PO QHS #30 Height (feet): 5 Height (inches): 6.00 Medical History: CAD? No Angina: No CO: No Hypertension? No Hyperlipidemia? No CHF? No DVT? No PE? No COPD? No Asthma? No Anemia? No GERD? No Gastric ulcers? No GI Bleed? No Hernia? No Thyroid Problems? No Hypothyroidism? No CVA? Yes Seizures? No Diabetes? No UTI? No Stones? No BPH? No GB Disease: No Nephritic Syndrome? No Asplenia? No Hepatitis? No Sickle Cell Disease? No Arthritis? No Migraines? No Cataracts? No Glaucoma? No MRSA? No HIV? No TB? No Anxiety? No Depression? No Cancer? No More? No Labs: Laboratory Tests 04/08/17 1315: Sodium 139, Potassium 3.2 L, Chloride 104, Carbon Dioxide 27, BUN 4 L, Creatinine 0.7, Estimated Creat Clear 103, Estimated GFR (MDRD) 95, Glucose 106, Calcium 8.2 L, Total Bilirubin 14.3 *H, AST 237 H, ALT 71, Alkaline Phosphatase 142 H, Total Protein 6.9, Albumin 1.9 L, Globulin 5.0 H, Albumin/ Globulin Ratio 0.4 L 04/08/17 1237: Vancomycin Trough 21.4 H 04/08/17 0641: Sodium 140, Potassium 2.8 *L, Chloride 104, Carbon Dioxide 30, BUN 3 L, Creatinine 0.5 L, Estimated Creat Clear 144, Estimated GFR (MDRD) 140, Glucose 82, Calcium 8.0 L, Total Bilirubin 13.1 *H, Direct Bilirubin 10.80 H, Indirect Bilirubin 2.30 H, AST 220 H, ALT 66, Alkaline Phosphatase 133 H, Total Protein 6.3 L, Albumin 1.7 L, PT 16.1 H, INR 1.48 H, WBC 16.4 H, RBC 2.94 L, Hgb 10.6 L, Hct 33.0 L, MCV 112.2 H, RDW 18.3 H, Plt Count 301, MPV 9.5, Gran % 82.7 H, Gran # 13.6 H, Lymphocytes % 12.0, Monocytes % 4.4, Eosinophils % 0.3, Basophils % 0.6, Lymphocytes # 2.0, Monocytes # 0.7, Eosinophils # 0.1, Basophils # 0.1, PUBS MCHC 32.5, MCH 36.4 H 04/07/17 1600: Opiates Screen NEGATIVE, Urine Methadone Screen NEGATIVE, Barbiturates NEGATIVE, Phencyclidine Screen NEGATIVE, Amphetamines Screen NEGATIVE, Benzodiazepines Screen NEGATIVE, Cocaine Screen NEGATIVE, Marijuana (THC) Screen NEGATIVE, Urine Color CAROLE, Urine Appearance CLEAR, Urine pH 6.0, Ur Specific [place] 1.020, Urine Protein TRACE H, Urine Ketones MODERATE H, Urine Blood NEGATIVE, Urine Nitrate NEGATIVE, Urine Bilirubin 3+ H, Urine Ictotest POSITIVE, Urine Urobilinogen 1, Ur Leukocyte Esterase NEGATIVE, Urine RBC NONE, Urine WBC 3-5, Ur Squamous Epith Cells 10-20, Urine Bacteria 2+, Urine Glucose NEGATIVE Microbiology 04/07 1600 URINE CC: Urine Culture - RES 04/07 1507 BLOOD: Anaerobic Blood Culture - RECD 04/07 1507 BLOOD: Aerobic Blood Culture - RECD 04/07 1505 BLOOD: Anaerobic Blood Culture - RECD 04/07 1505 BLOOD: Aerobic Blood Culture - RECD Plan: BASED ON VANCOMYCIN TROUGH LEVEL, RECOMMEND CHANGING TO VANCOMYCIN 1250 MG IV Q12H. PHARMACY WILL CONTINUE TO MONITOR AND ADJUST APPROPRIATE. at 3410
[2017-04-08 16:37] LABS: Antinuclear Antibodies, IFA Negative (.)
[2017-04-09 00:13] VITALS: BP 105/67
[2017-04-09 05:03] VITALS: BP 112/70
[2017-04-09 07:13] LABS: HEMOGLOBIN 11.6 g/dL (12.2-16.2); LYMPH # 2.7 K/mm3 (0.7-4.5); LYMPH % 15.4 % (10-50.0)
--- NOTE | 2017-04-09 07:21 | ACUTE CARE PROGRESS NOTE (QUA) ---
Progress Notes Subjective Date 04/09/17 Time 0718 Note Patient complains of nausea and chest pain but no vomiting. Nursing staff reports patient is getting Zofran and Phenergan regularly as well as her pain medication. Patient denies hunger this morning. Patient is awake and alert. She is in no distress. Lungs are clear to auscultation. Heart has regular rate and rhythm. Abdomen is nontender with palpable liver and spleen. Bowel sounds are present. Labs noted Plan will be to advance patient's diet once her nausea subsides. Continue lactulose. Replace potassium Objective Findings Last VS-Temp:98.7 B/P:112/70 Pulse:87 Resp:16 SaO2:97 ROOM AIR Last weight lbs:129 oz:3 K.599 Method:Bed Scales Laboratory Tests 04/09/17 0617: WBC 17.6 H, RBC 3.16 L, Hgb 11.6 L, Hct 36.2 L, MCV 114.7 H, RDW 18.2 H, Plt Count 369, MPV 10.3, Gran % 78.1, Gran # 13.7 H, Lymphocytes % 15.4, Monocytes % 5.4, Eosinophils % 0.6, Basophils % 0.5, Lymphocytes # 2.7, Monocytes # 1.0, Eosinophils # 0.1, Basophils # 0.1, PUBS MCHC 31.9, MCH 36.6 H 04/08/17 1315: Sodium 139, Potassium 3.2 L, Chloride 104, Carbon Dioxide 27, BUN 4 L, Creatinine 0.7, Estimated Creat Clear 103, Estimated GFR (MDRD) 95, Glucose 106, Calcium 8.2 L, Total Bilirubin 14.3 *H, AST 237 H, ALT 71, Alkaline Phosphatase 142 H, Total Protein 6.9, Albumin 1.9 L, Globulin 5.0 H, Albumin/ Globulin Ratio 0.4 L 04/08/17 1237: Vancomycin Trough 21.4 H Assessment/Plan Problem List 1. Acute liver disease 2. History of ETOH abuse 3. Exposure to hepatitis C Patient condition Stable Plan: continue current care, make medication changes This inpt stay is expected to cross 2 MNs from start of care Yes at 0720
[2017-04-09 08:23] VITALS: BP 110/72
--- NOTE | 2017-04-09 08:37 | SURGEON PROGRESS NOTE ---
Subjective data Subjective data: The patient states that she "feels okay this morning". She states that she is "hopefully going home tomorrow" and is to see an "outpatient liver doctor". Objective data Vitals,I&O,and Labs: Vital signs, intake and output,and available lab data for the last 24 hours is as noted below. Vital Signs Date Time Temp Pulse Resp B/P Pulse O2 O2 Flow FiO2 Ox Delivery Rate 04/09 823 98.9 90 18 110/72 98 ROOM AIR 04/09 0503 98.7 87 16 112/70 97 ROOM AIR 04/09 0337 18 04/09 0013 98.2 87 18 105/67 98 ROOM AIR 04/08 2202 16 04/08 2024 97.5 95 16 119/74 97 04/08 2006 97.5 95 16 119/74 97 ROOM AIR 04/08 1722 18 04/08 1600 98.2 84 18 109/65 99 ROOM AIR 04/08 1200 98.4 99 16 125/77 97 ROOM AIR 04/08 0952 18 04/08 0947 99.0 100 18 120/71 98 04/08 1500 04/08 2300 04/09 0700 Intake Total 240 710 Output Total Balance 240 710 Intake, IV 350 Intake, Oral 240 360 Patient 58.599 kg Weight Laboratory Tests Test Result Date Time Chemistry Sodium (mmoL/L) 142 04/09 617 Potassium (mmoL/L) 3.7 04/09 617 Chloride (mmoL/L) 108 04/09 617 Carbon Dioxide (mmoL/L) 26 04/09 617 BUN (mg/dL) 4 04/09 617 Creatinine (mg/dL) 1.1 04/09 617 Estimated Creat Clear (ML/MIN) 65 04/09 617 Estimated GFR (MDRD) (ML/MIN) 56 04/09 617 Glucose (mg/dL) 89 04/09 617 Hemoglobin A1c (%) 3.9 04/07 1256 Calcium (mg/dL) 8.5 04/09 617 Total Bilirubin (mg/dL) 12.7 04/09 617 Direct Bilirubin (mg/dL) 10.80 04/08 641 Indirect Bilirubin (mg/dL) 2.30 04/08 641 AST (U/L) 241 04/09 617 ALT (U/L) 72 04/09 617 Alkaline Phosphatase (U/L) 141 04/09 617 Ammonia (umoL/L) < 10 04/07 1337 Total Protein (gm/dL) 6.9 04/09 617 Albumin (gm/dL) 1.9 04/09 617 Globulin (gm/dL) 5.0 04/09 617 Albumin/Globulin Ratio 0.4 04/09 617 Coagulation PT (SECONDS) 16.1 04/08 641 INR 1.48 04/08 641 APTT (SECONDS) 31.5 04/07 1256 Hematology WBC (K/MM3) 17.6 04/09 617 RBC (M/mm3) 3.16 04/09 617 Hgb (g/dL) 11.6 04/09 617 Hct (%) 36.2 04/09 617 MCV (fl) 114.7 04/09 617 RDW (%) 18.2 04/09 617 Plt Count (K/mm3) 369 04/09 617 MPV (fl) 10.3 04/09 617 Gran % (%) 78.1 04/09 617 Gran # (K/mm3) 13.7 04/09 617 Total Counted (#CELLS) 100 04/07 1256 Lymphocytes % (%) 15.4 04/09 617 Monocytes % (%) 5.4 04/09 617 Eosinophils % (%) 0.6 04/09 617 Basophils % (%) 0.5 04/09 617 Neutrophils (%) 83 04/07 125 Lymphocytes (Manual) (%) 8 04/07 1256 Lymphocytes # (K/mm3) 2.7 04/09 617 Monocytes (Manual) (%) 9 04/07 1256 Monocytes # (K/mm3) 1.0 04/09 617 Eosinophils # (K/mm3) 0.1 04/09 617 Basophils # (K/MM3) 0.1 04/09 617 Platelet Estimate SLIGHT INCREASE 04/07 1256 PUBS MCHC (g/dl) 31.9 04/09 617 Immunology MCH (pg) 36.6 04/09 617 Serology Hepatitis A IgM Ab Negative 04/07 1337 Hep Bs Antigen Negative 04/07 1337 Hep B Core IgM Ab Negative 04/07 1337 Hepatitis C Antibody 0.2 04/07 1337 Toxicology Vancomycin Trough (mcg/mL) 21.4 04/08 1237 Opiates Screen (ng/mL) NEGATIVE 04/07 1600 Urine Methadone Screen (ng/mL) NEGATIVE 04/07 1600 Barbiturates (ng/mL) NEGATIVE 04/07 1600 Phencyclidine Screen (ng/mL) NEGATIVE 04/07 1600 Amphetamines Screen (ng/mL) NEGATIVE 04/07 1600 Benzodiazepines Screen (ng/mL) NEGATIVE 04/07 1600 Cocaine Screen (ng/g) NEGATIVE 04/07 1600 Marijuana (THC) Screen (ng/mL) NEGATIVE 04/07 1600 Alcohols (mg/dL) 0 04/07 1256 Urines Urine Color CAROLE 04/07 1600 Urine Appearance CLEAR 04/07 1600 Urine pH 6.0 04/07 1600 Ur Specific [place] 1.020 04/07 1600 Urine Protein (mg/dL) TRACE 04/07 1600 Urine Ketones (mg/dL) MODERATE 04/07 1600 Urine Blood NEGATIVE 04/07 1600 Urine Nitrate NEGATIVE 04/07 1600 Urine Bilirubin 3+ 04/07 1600 Urine Ictotest POSITIVE 04/07 1600 Urine Urobilinogen (E.U./dL) 1 04/07 1600 Ur Leukocyte Esterase NEGATIVE 04/07 1600 Urine RBC (rbc/hpf) NONE 04/07 1600 Urine WBC (wbc/hpf) 3-5 04/07 1600 Ur Squamous Epith Cells (#/hpf) 10-20 04/07 1600 Urine Bacteria 2+ 04/07 1600 Urine Glucose NEGATIVE 04/07 1600 Assessment findings Assessment Exam General appearance: no acute distress Cardiovascular: regular rate & rhythm Respiratory: no respiratory distress ABD: hepatomegaly ((unchanged)) Patient plan Diagnoses: Hepatosplenomegaly Liver dysfunction Hyperbilirubinemia Plan: continue medical management, outpatient hepatology evaluation pending at 0837
[2017-04-09 09:05] LABS: NEUTROPHILS 82 % (42-76)
[2017-04-09 16:21] VITALS: BP 104/56
[2017-04-09 20:44] VITALS: BP 122/63
[2017-04-10 06:02] VITALS: BP 111/83
[2017-04-10 06:36] LABS: HEMOGLOBIN 10.5 g/dL (12.2-16.2); LYMPH # 2.4 K/mm3 (0.7-4.5); LYMPH % 18.7 % (10-50.0)
--- NOTE | 2017-04-10 06:56 | SURGEON PROGRESS NOTE ---
Subjective data Subjective data: Feels "not so great". Objective data Vitals,I&O,and Labs: Vital signs, intake and output,and available lab data for the last 24 hours is as noted below. Vital Signs Date Time Temp Pulse Resp B/P Pulse O2 O2 Flow FiO2 Ox Delivery Rate 04/10 0602 98.3 90 16 111/83 97 ROOM AIR 04/09 2211 97.4 90 18 122/63 98 04/09 2044 97.4 90 18 122/63 98 ROOM AIR 04/09 1820 18 04/09 1621 98.5 82 18 104/56 97 ROOM AIR 04/09 1216 18 04/09 0830 98.5 82 18 104/56 97 04/09 0823 98.9 90 18 110/72 98 ROOM AIR 04/09 1500 04/09 2300 04/10 0700 Intake Total 360 650 Output Total Balance 360 650 Intake, IV 290 Intake, Oral 360 360 Laboratory Tests Test Result Date Time Chemistry Sodium (mmoL/L) 142 04/09 617 Potassium (mmoL/L) 3.7 04/09 617 Chloride (mmoL/L) 108 04/09 617 Carbon Dioxide (mmoL/L) 26 04/09 617 BUN (mg/dL) 4 04/09 617 Creatinine (mg/dL) 1.1 04/09 617 Estimated Creat Clear (ML/MIN) 65 04/09 617 Estimated GFR (MDRD) (ML/MIN) 56 04/09 617 Glucose (mg/dL) 89 04/09 617 Hemoglobin A1c (%) 3.9 04/07 1256 Calcium (mg/dL) 8.5 04/09 617 Total Bilirubin (mg/dL) 12.7 04/09 617 Direct Bilirubin (mg/dL) 10.80 04/08 641 Indirect Bilirubin (mg/dL) 2.30 04/08 641 AST (U/L) 241 04/09 617 ALT (U/L) 72 04/09 617 Alkaline Phosphatase (U/L) 141 04/09 617 Ammonia (umoL/L) < 10 04/07 1337 Total Protein (gm/dL) 6.9 04/09 617 Albumin (gm/dL) 1.9 04/09 617 Globulin (gm/dL) 5.0 04/09 617 Albumin/Globulin Ratio 0.4 04/09 617 Ceruloplasmin (mg/dL) 35.6 04/07 1337 Coagulation PT (SECONDS) 16.1 04/08 641 INR 1.48 04/08 641 APTT (SECONDS) 31.5 04/07 1256 Hematology WBC (K/MM3) 12.8 04/10 630 RBC (M/mm3) 2.84 04/10 630 Hgb (g/dL) 10.5 04/10 630 Hct (%) 33.3 04/10 630 MCV (fl) 117.4 04/10 630 RDW (%) 17.8 04/10 630 Plt Count (K/mm3) 287 04/10 630 MPV (fl) 10.0 04/10 630 Gran % (%) 74.8 04/10 630 Gran # (K/mm3) 9.5 04/10 630 Total Counted (#CELLS) 100 04/09 617 Lymphocytes % (%) 18.7 04/10 630 Monocytes % (%) 5.3 04/10 630 Eosinophils % (%) 0.8 04/10 630 Basophils % (%) 0.4 04/10 630 Neutrophils (%) 82 04/09 617 Lymphocytes (Manual) (%) 12 04/09 617 Lymphocytes # (K/mm3) 2.4 04/10 630 Monocytes (Manual) (%) 6 04/09 617 Monocytes # (K/mm3) 0.7 04/10 630 Eosinophils # (K/mm3) 0.1 04/10 630 Basophils # (K/MM3) 0.1 04/10 630 Platelet Estimate NORMAL 04/09 617 Anisocytosis 1+ 04/09 617 Macrocytosis 1+ 04/09 617 PUBS MCHC (g/dl) 31.5 04/10 630 Immunology NURIS Screen Negative 04/07 1337 Anti-Mitochondrial Ab (Units) <20.0 04/07 1337 MCH (pg) 37.0 04/10 630 Serology Hepatitis A IgM Ab Negative 04/07 1337 Hep Bs Antigen Negative 04/07 1337 Hep B Core IgM Ab Negative 04/07 1337 Hepatitis C Antibody 0.2 04/07 1337 Toxicology Vancomycin Trough (mcg/mL) 21.4 04/08 123 Opiates Screen (ng/mL) NEGATIVE 11/21 1600 Urine Methadone Screen (ng/mL) NEGATIVE 04/07 1600 Barbiturates (ng/mL) NEGATIVE 04/07 1600 Phencyclidine Screen (ng/mL) NEGATIVE 04/07 1600 Amphetamines Screen (ng/mL) NEGATIVE 04/07 1600 Benzodiazepines Screen (ng/mL) NEGATIVE 04/07 1600 Cocaine Screen (ng/g) NEGATIVE 04/07 1600 Marijuana (THC) Screen (ng/mL) NEGATIVE 04/07 1600 Alcohols (mg/dL) 0 04/07 1256 Urines Urine Color CAROLE 04/07 1600 Urine Appearance CLEAR 04/07 1600 Urine pH 6.0 04/07 1600 Ur Specific [place] 1.020 04/07 1600 Urine Protein (mg/dL) TRACE 04/07 1600 Urine Ketones (mg/dL) MODERATE 04/07 1600 Urine Blood NEGATIVE 04/07 1600 Urine Nitrate NEGATIVE 04/07 1600 Urine Bilirubin 3+ 04/07 1600 Urine Ictotest POSITIVE 04/07 1600 Urine Urobilinogen (E.U./dL) 1 04/07 1600 Ur Leukocyte Esterase NEGATIVE 04/07 1600 Urine RBC (rbc/hpf) NONE 04/07 1600 Urine WBC (wbc/hpf) 3-5 04/07 1600 Ur Squamous Epith Cells (#/hpf) 10-20 04/07 1600 Urine Bacteria 2+ 04/07 1600 Urine Glucose NEGATIVE 04/07 1600 Assessment findings Assessment Exam General appearance: no acute distress Cardiovascular: regular rate & rhythm Respiratory: no respiratory distress ABD: hepatomegaly (unchanged) Patient plan Diagnoses: Hepatosplenomegaly Jaundice Plan: as per primary service, GI evaluation pending at 0656
[2017-04-10 06:57] LABS: BILIRUBIN, INDIRECT 1.64 mg/dL (0-0.9)
[2017-04-10 08:00] VITALS: BP 116/66
--- NOTE | 2017-04-10 08:12 | ACUTE CARE PROGRESS NOTE (QUA) ---
Progress Notes Subjective Date 04/10/17 Time 0812 Assessment/Plan Problem List 1. Acute liver disease 2. History of ETOH abuse 3. Exposure to hepatitis C This inpt stay is expected to cross 2 MNs from start of care Yes Antibiotic Stewardship (2) Current Culture Results Microbiology 04/07 1600 URINE CC: Urine Culture - RES 04/07 1507 BLOOD: Anaerobic Blood Culture - RECD 04/07 1507 BLOOD: Aerobic Blood Culture - RECD Infxn that will respond? Yes (CULTURES PENDING AT THIS TIME) Right drug,dose,and route? Yes More targeted antbx? No at 0812
--- NOTE | 2017-04-10 08:58 | DISCHARGE SUMMARY STANDARD ---
Demographics Admit date: 04/07/17 Discharge date: 04/10/17 History of present illness History of present illness 36-year-old white female with no significant medical history presents to internal medicine clinic for evaluation of her "eyes and liver." Patient reports one-month history of increasing abdominal distention, pain and jaundice. She was seen in the emergency department 01/2017 for RUQ pain, chest pain, nausea and vomiting. CT scan at that time showed a constellation of liver abnormalities including hepatomegaly, hepatic steatosis and a 4 cm focal low- density lesion in the posterior dome of the liver. Liver enzymes were elevated with AST 305 and ALT 81. Alk phos 328 with Total Bili 3.1. ED note states patient was instructed to FU with Dr. Campbell; however patient states she was unaware of the FU. Today, patient reports abdominal pain, nausea and distention has significantly increased over the past month. She has occasional vomiting and diarrhea. She reports approximate 10 pound weight loss in the last 1-2 months. She denies any current alcohol or drug use. Reports previous history of 6-7 beers 3-4 days per week, last drink approx 3 months ago. Denies any history of IV drug use. Her father who is now was hepatitis C positive. In the office, patient was noted to be severely jaundiced with significant hepatomegaly and splenomegaly. She was admitted to acute care for further evaluation. Hospital Course Hospital Course: Patient was admitted, labs were done showing mildly elevated INR, elevated serum creatinine and elevated bilirubin, this combined to produce a meld score of 24, which statistically confers a 21 percent mortality rate over the next 3 months. Patient's alcohol levels were 0, drug screen was negative. Patient improved over the next 48 hours of IV fluids. Ceftriaxone and vancomycin were started because of the possibility of bacterial peritonitis, interestingly ultrasound and CT scan revealed no evidence of ascitic fluid simply hepatosplenomegaly. Hepatitis serologies were done which were negative for hepatitis A, B or C. Autoimmune serologies are pending. Patient improved stepwise fashion and is able to eat and drink with some nausea but this has been ameliorated with Zofran. This morning patient has improved vital signs, and her hydration status is better. She still is jaundiced with deep scleral icterus, but is having loose bowel movements (secondary to lactulose) and normal urine output. Lungs are clear, heart rate regular. She is alert and oriented 3. I again reviewed with her her alcohol history. She states that up until 2 months ago-her ER visit noted in prior charts-she was drinking 7 beers 3 or 4 times weekly with occasional vodka use. She reports that when she was told she had a liver and pancreas problem that she has been abstinent from alcohol since that time. There is no family history of autoimmune liver disease, there is a strong family history of alcoholism and alcohol-related liver damage. I think we have reached maximal medical improvement in the hospital, pending autoimmune serologies. I am suspicious of an autoimmune etiology on top of previous alcoholic liver damage. I think discharge home today is safe with short-term follow-up, I will initiate prednisone therapy, continue Zofran, spironolactone and low-dose and low-dose lactulose. She has significant pain from hepatosplenomegaly and we will initiate short-term tramadol prescription as written. I've instructed her if nausea or vomiting becomes worse to report back to the ER at which time she may need transfer to [facility] for liver specialty evaluation. Discharge diagnoses Problem List 1. Acute liver disease 2. History of ETOH abuse 3. Exposure to hepatitis C Medications Medications: Discharge meds are as noted. Follow up Follow up in office in: 3 DAYS with: Ayush Doherty MD at [phone]
[2017-04-10] MEDS ORDERED: INDERAL 20MG. T20 MG PO (09:04)
--- NOTE | 2017-04-10 09:04 | CONSULT NOTE ---
Pharmacokinetic Consult Date of consult: 04/10/17 Time of consult: 900 Referring provider: DR. TOLENTINO Reason for consult: VANCOMYCIN TROUGH LEVEL Allergies: Coded Allergies: erythromycin base (Mild, 06/14/16) penicillin G (Mild, 06/14/16) Home Medications: Reported Medications Pantoprazole Sodium 40 MG PO QHS #30 Height (feet): 5 Height (inches): 6.00 Medical History: CAD? No Angina: No MD: No Hypertension? No Hyperlipidemia? No CHF? No DVT? No PE? No COPD? No Asthma? No Anemia? No GERD? No Gastric ulcers? No GI Bleed? No Hernia? No Thyroid Problems? No Hypothyroidism? No CVA? Yes Seizures? No Diabetes? No UTI? No Stones? No BPH? No GB Disease: No Nephritic Syndrome? No Asplenia? No Hepatitis? No Sickle Cell Disease? No Arthritis? No Migraines? No Cataracts? No Glaucoma? No MRSA? No HIV? No TB? No Anxiety? No Depression? No Cancer? No More? No Labs: Laboratory Tests 04/10/17 0630: Sodium 144, Potassium 3.8, Chloride 110 H, Carbon Dioxide 26, BUN 4 L, Creatinine 1.1 H, Estimated Creat Clear 65, Estimated GFR (MDRD) 56 L, Glucose 107 H, Calcium 8.5, Total Bilirubin 11.3 H, Direct Bilirubin 9.66 H, Indirect Bilirubin 1.64 H, AST 280 H, ALT 72, Alkaline Phosphatase 123 H, Total Protein 6.6, Albumin 1.7 L, WBC 12.8 H, RBC 2.84 L, Hgb 10.5 L, Hct 33.3 L, MCV 117.4 H, RDW 17.8 H, Plt Count 287, MPV 10.0, Gran % 74.8, Gran # 9.5 H, Lymphocytes % 18.7, Monocytes % 5.3, Eosinophils % 0.8, Basophils % 0.4, Lymphocytes # 2.4, Monocytes # 0.7, Eosinophils # 0.1, Basophils # 0.1, PUBS MCHC 31.5 L, MCH 37.0 H, Vancomycin Trough 24.1 H Plan: PATIENT'S VANCOMYCIN TROUGH LEVEL WAS 24.1 MCG/ML THIS AM. RECOMMENDED HOLDING DOSE OF VANCOMYCIN UNTIL 2100 TONIGHT AND RESTARTING AT VANCOMYCIN 1000 MG Q18H. PHARMACY WILL FOLLOW DAILY AND ADJUST APPROPRIATE. MEMO JOHNSON, PHARMD at [id number]
[2017-04-10] MEDS ORDERED: PREDNISONE 20MG20 MG PO (09:05)
[2017-04-10] MEDS ORDERED: ALDACTONE25 MG PO (09:05)
[2017-04-10] MEDS ORDERED: LACTULOSE10 GM/15 M PO (09:06)
[2017-04-10] MEDS ORDERED: ZOFRAN ODT4 MG PO (09:07)
[2017-04-10] MEDS ORDERED: TRAMADOL50 M1 PO (09:09)
[2017-04-10 10:00] VITALS: BP 120/68
== END 2017-04-10 12:40 | disposition home or self-care (01) | DRG 443 ==
LOC: 2ND 11:29
PROVIDERS: Family Medicine; Internal Medicine Adolescent Medicine
DX: R16.2 Hepatomegaly with splenomegaly, not elsewhere classified (principal); F10.21 Alcohol dependence, in remission; K76.9 Liver disease, unspecified; Z20.5 Contact with and (suspected) exposure to viral hepatitis
CPT/HCPCS: J2405; J3370; Q9967

== ENCOUNTER → 2017-04-13 | Outpatient (CLI) | payer MEDICAID ==
[~2017-04-13] MED LIST changes: +ALDACTONE25 MG PO; +INDERAL 20MG. T20 MG PO; +LACTULOSE10 GM/15 M PO; +PANTOPRAZOLE SO40 M1 PO; +PREDNISONE 20MG20 MG PO; +TRAMADOL50 M1 PO; +ZOFRAN ODT4 MG PO
[2017-04-13 13:37] LABS: LYMPH % 7.4 % (10-50.0)
[2017-04-13 13:46] LABS: HEMOGLOBIN 11.8 g/dL (12.2-16.2)
[2017-04-13 14:32] LABS: BUN 17 mg/dL (7-18)
[2017-04-13 14:33] LABS: GFR (ESTIMATED) 32 ML/MIN (59-)
[2017-04-13 14:55] LABS: NEUTROPHILS 90 % (42-76)
[2017-04-13 14:58] LABS: STOMATOCYTE 1+
== END ==
LOC: LAB 12:46
PROVIDERS: Internal Medicine Adolescent Medicine
DX: E80.6 Other disorders of bilirubin metabolism (principal)

== ENCOUNTER → 2017-05-04 | Outpatient (CLI) | payer MEDICAID ==
[2017-05-04 13:59] LABS: BUN 12 mg/dL (7-18)
[2017-05-04 14:01] LABS: GFR (ESTIMATED) 71 ML/MIN (59-)
[2017-05-04 14:45] LABS: HEMOGLOBIN 12.3 g/dL (12.2-16.2)
[2017-05-04 15:51] LABS: NEUTROPHILS 96 % (42-76)
[2017-05-04 15:52] LABS: STOMATOCYTE 2+
== END ==
LOC: LAB 13:35
PROVIDERS: Internal Medicine Adolescent Medicine
DX: K70.30 Alcoholic cirrhosis of liver without ascites (principal); R17 Unspecified jaundice